=== PATIENT | female | born 1945 | race Caucasian/White ===

== ENCOUNTER 2017-12-09 10:03 | Inpatient (IN) | payer OTHER ==
[~2017-12-09 10:03] MED LIST: ACETAMINOPHEN 1000 MG/100 ML IVPB; CEFAZOLIN 1 GM INJ; DEXAMETHASONE 4 MG/ML 1 ML INJ; ONDANSETRON 4 MG INJ
[2017-12-09] MEDS ORDERED: POLYMYXIN B 500000 UNIT INJ (11:42)
[2017-12-09] MEDS ORDERED: MIDAZOLAM 1 MG/ML 2 ML INJ (12:01)
[2017-12-09] MEDS ORDERED: PROPOFOL 20 ML (12:01)
[2017-12-09] MEDS ORDERED: FENTAnyl 50 MCG/ML VIAL (12:01)
[2017-12-09] MEDS ORDERED: METOCLOPRAMIDE 10 MG INJ (12:02)
[2017-12-09] MEDS ORDERED: LIDOCAINE 2% (SDV) 5 ML INJ (12:02)
[2017-12-09] MEDS ORDERED: BUPIVACAINE 0.75%/DEXT (SPINAL) 2 ML INJ (12:06)
[2017-12-09] MEDS ORDERED: EPINEPHrine 1 MG INJ (12:06)
[2017-12-09] MEDS ORDERED: POLYMYXIN/BACITRACIN 1L IRRIG (12:08)
[2017-12-09] MEDS ORDERED: CEFAZOLIN 2 GM/50 ML (PMX) 50 ML IVPB (12:33)
[2017-12-09] MEDS: POLYMYXIN/BACITRACIN 1L IRRIG IRR (12:49)
[2017-12-09] MEDS: BACITRACIN 50000 UNITS INJ IRR (12:49)
[2017-12-09] MEDS: POLYMYXIN B 500000 UNIT INJ IRR (12:49)
[2017-12-09] MEDS ORDERED: NALOXONE (0.4 MG/ML) INJ IV (13:00)
[2017-12-09] MEDS ORDERED: NACL 0.9% 3 ML SYG IV (13:00)
[2017-12-09] MEDS ORDERED: oxyCODONE 5 MG TAB PO (13:00)
[2017-12-09] MEDS ORDERED: DIPHENHYDRAMINE 50 MG INJ IV ×2 (13:00→14:30)
[2017-12-09] MEDS ORDERED: BETHANECHOL 25 MG TAB PO (13:00)
[2017-12-09] MEDS ORDERED: BISACODYL 10 MG SUPP PR (13:00)
[2017-12-09] MEDS ORDERED: SENNA/DOCUSATE NA (8.6MG/50MG) TAB PO (13:00)
[2017-12-09] MEDS ORDERED: MAGNESIUM HYDROXIDE 30ML CUP PO (13:00)
[2017-12-09] MEDS: TRANEXAMIC ACID 1,000 MG in DEXTROSE 5% 100 ML IV (13:00)
[2017-12-09] MEDS ORDERED: NA PHOSPHATE/BIPHOS 133 ML ENEMA PR (13:00)
[2017-12-09] MEDS ORDERED: hydrALAzine 20 MG INJ (13:58)
[2017-12-09] MEDS ORDERED: IPRATROPIUM (NEB) 0.5 MG/2.5 ML AMP HHN (14:30)
[2017-12-09] MEDS ORDERED: hydrALAzine 20 MG INJ IV (14:30)
[2017-12-09] MEDS ORDERED: HYDROmorphONE 1 MG/5 ML IV SYRINGE IV ×3 (14:30)
[2017-12-09] MEDS ORDERED: LABETALOL HCL 20MG INJ IV (14:30)
[2017-12-09] MEDS ORDERED: ONDANSETRON 4 MG INJ IV (14:30)
[2017-12-09] MEDS ORDERED: FENTAnyl 50 MCG/ML VIAL IV ×2 (14:30)
[2017-12-09] MEDS ORDERED: MEPERIDINE 25 MG INJ IV (14:30)
[2017-12-09] MEDS: ASPIRIN (EC) 325 MG TAB PO (15:05)
[2017-12-09] MEDS: DOCUSATE SODIUM 100 MG CAP PO (15:05)
[2017-12-09] MEDS: CEFAZOLIN 1 GM/50 ML (PMX) 50 ML IVPB ×2 (15:06→20:17)
[2017-12-09] MEDS: SOD CHLORIDE 0.9% 1,000 ML IV ×2 (15:07→15:46)
[2017-12-09] MEDS: ONDANSETRON 4 MG INJ IV ×2 (15:32→18:47)
[2017-12-09] MEDS: KETOROLAC 15 MG INJ IV (18:47)
[2017-12-09] MEDS: ATORVASTATIN 10 MG TAB PO (20:17)
[2017-12-09] MEDS: METOPROLOL 50 MG TAB PO (20:17)
[2017-12-09] MEDS: GABAPENTIN 100 MG CAP PO (20:18)
[2017-12-10] MEDS: KETOROLAC 15 MG INJ IV ×2 (01:26→07:04)
[2017-12-10] MEDS: ONDANSETRON 4 MG INJ IV ×2 (01:26→06:07)
[2017-12-10] MEDS: SOD CHLORIDE 0.9% 1,000 ML IV (01:29)
[2017-12-10] MEDS: CEFAZOLIN 1 GM/50 ML (PMX) 50 ML IVPB (04:46)
[2017-12-10 05:22] LABS: ADD MAN DIFF? NO
[2017-12-10 05:31] LABS: WHITE BLOOD COUNT 14.6 10^3/ul (4.8-10.8)
[2017-12-10 05:32] LABS: BASOPHILS % 0.2 % (0.0-2.0); HEMATOCRIT 33.4 % (37.0-47.0); HEMOGLOBIN 10.9 g/dl (12.0-16.0); LYMPHOCYTES % 6.7 % (15.0-51.0); MEAN CORPUSCULAR HEMOGLOBIN 30.8 pg (29.0-33.0); MEAN CORPUSCULAR HGB CONC 32.6 g/dl (32.0-37.0); MEAN CORPUSCULAR VOLUME 94.4 fl (82.0-101.0); MEAN PLATELET VOLUME 10.5 fl (7.4-10.4); MONOCYTE # 1.4 10^3/ul (0.3-0.9); MONOCYTES % 9.8 % (0.0-11.0); NEUTROPHIL # 12.1 10^3/ul (1.6-7.5); NEUTROPHILS % 82.9 % (39.0-77.0); PLATELET COUNT 235 10^3/UL (140-415); RED BLOOD COUNT 3.54 10^6/ul (4.20-5.40); RED CELL DISTRIBUTION WIDTH 12.1 % (11.5-14.5)
[2017-12-10 05:41] LABS: ANION GAP 14 (8-16); BLOOD UREA NITROGEN 15 mg/dl (7-20); CALCIUM 9.3 mg/dl (8.4-10.2); CARBON DIOXIDE 28 mmol/L (21-31); CHLORIDE 104 mmol/L (97-110); CREATININE 0.66 mg/dl (0.44-1.00); GLUCOSE 126 mg/dl (70-220); POTASSIUM 4.2 mmol/L (3.5-5.1); SODIUM 142 mmol/L (135-144)
[2017-12-10] MEDS: PANTOPRAZOLE (EC) 40 MG TAB PO (06:00)
[2017-12-10] MEDS: FERROUS FUMARATE (SR) TAB PO ×2 (08:15→20:17)
[2017-12-10] MEDS: GABAPENTIN 100 MG CAP PO ×2 (08:16→20:17)
[2017-12-10] MEDS: FUROSEMIDE 20 MG TAB PO (08:16)
[2017-12-10] MEDS: LISINOPRIL 20 MG TAB PO (08:16)
[2017-12-10] MEDS: DOCUSATE SODIUM 100 MG CAP PO ×2 (08:17→20:18)
[2017-12-10] MEDS: HYDROCHLOROTHIAZIDE 12.5 MG CAP PO (08:17)
[2017-12-10] MEDS: METOPROLOL 50 MG TAB PO ×2 (08:17→20:34)
[2017-12-10] MEDS: AMLODIPINE 5 MG TAB PO (08:17)
[2017-12-10] MEDS: ASPIRIN (EC) 325 MG TAB PO (08:18)
[2017-12-10] MEDS ORDERED: CELECOXIB 200 MG CAP PO (09:00)
[2017-12-10] MEDS ORDERED: ACETAMINOPHEN 1000MG/100ML IV 100 ML IVPB (09:00)
[2017-12-10] MEDS: CELECOXIB 100 MG CAP PO ×2 (11:46→20:17)
[2017-12-10] MEDS: ACETAMINOPHEN 325 MG TAB PO ×2 (11:46→18:35)
[2017-12-10] MEDS: ATORVASTATIN 10 MG TAB PO (20:17)
[2017-12-11] MEDS: KETOROLAC 15 MG INJ IV (00:27)
[2017-12-11] MEDS: SOD CHLORIDE 0.9% 1,000 ML IV ×2 (02:06→14:36)
[2017-12-11] MEDS: PANTOPRAZOLE (EC) 40 MG TAB PO (06:57)
[2017-12-11] MEDS: oxyCODONE 5 MG TAB PO ×2 (07:49→13:24)
[2017-12-11] MEDS: GABAPENTIN 100 MG CAP PO ×2 (08:41→21:10)
[2017-12-11] MEDS: CELECOXIB 100 MG CAP PO ×2 (08:41→21:10)
[2017-12-11] MEDS: HYDROCHLOROTHIAZIDE 12.5 MG CAP PO (08:42)
[2017-12-11] MEDS: LISINOPRIL 20 MG TAB PO (08:42)
[2017-12-11] MEDS: ONDANSETRON 4 MG INJ IV ×2 (08:42→15:25)
[2017-12-11] MEDS: AMLODIPINE 5 MG TAB PO (08:43)
[2017-12-11] MEDS: METOPROLOL 50 MG TAB PO ×2 (08:43→21:15)
[2017-12-11] MEDS: FUROSEMIDE 20 MG TAB PO (08:43)
[2017-12-11] MEDS: ASPIRIN (EC) 325 MG TAB PO (08:43)
[2017-12-11] MEDS: FERROUS FUMARATE (SR) TAB PO ×2 (08:43→21:10)
[2017-12-11] MEDS: DOCUSATE SODIUM 100 MG CAP PO ×2 (08:44→21:00)
[2017-12-11 09:38] LABS: ADD MAN DIFF? NO
[2017-12-11 09:41] LABS: ABNORMAL IP MESSAGE 1; BASOPHIL # 0.1 10^3/ul (0.0-0.1); BASOPHILS % 0.6 % (0.0-2.0); EOSINOPHILS # 0.1 10^3/ul (0.0-0.5); EOSINOPHILS % 0.9 % (0.0-7.0); HEMATOCRIT 31.6 % (37.0-47.0); HEMOGLOBIN 9.9 g/dl (12.0-16.0); LYMPHOCYTES # 1.4 10^3/ul (0.8-2.9); LYMPHOCYTES % 12.8 % (15.0-51.0); MEAN CORPUSCULAR HEMOGLOBIN 30.2 pg (29.0-33.0); MEAN CORPUSCULAR HGB CONC 31.3 g/dl (32.0-37.0); MEAN CORPUSCULAR VOLUME 96.3 fl (82.0-101.0); MEAN PLATELET VOLUME 10.3 fl (7.4-10.4); MONOCYTE # 1.6 10^3/ul (0.3-0.9); MONOCYTES % 14.3 % (0.0-11.0); NEUTROPHIL # 7.8 10^3/ul (1.6-7.5); PLATELET COUNT 212 10^3/UL (140-415); RED BLOOD COUNT 3.28 10^6/ul (4.20-5.40); RED CELL DISTRIBUTION WIDTH 12.6 % (11.5-14.5)
[2017-12-11 09:44] LABS: POSITIVE DIFF @See below
[2017-12-11 10:09] LABS: ANION GAP 16 (8-16); BLOOD UREA NITROGEN 17 mg/dl (7-20); CALCIUM 8.8 mg/dl (8.4-10.2); CARBON DIOXIDE 28 mmol/L (21-31); CHLORIDE 102 mmol/L (97-110); CREATININE 0.97 mg/dl (0.44-1.00); GLUCOSE 114 mg/dl (70-220); POTASSIUM 4.3 mmol/L (3.5-5.1); SODIUM 142 mmol/L (135-144)
[2017-12-11] MEDS ORDERED: METOCLOPRAMIDE 10 MG INJ IV (16:15)
[2017-12-11] MEDS: PROCHLORPERAZINE 10 MG INJ IV (17:08)
[2017-12-11] MEDS: ACETAMINOPHEN 325 MG TAB PO (21:09)
[2017-12-11] MEDS: ATORVASTATIN 10 MG TAB PO (21:10)
[2017-12-12] MEDS: SOD CHLORIDE 0.9% 1,000 ML IV ×2 (03:06→13:43)
[2017-12-12] MEDS: PANTOPRAZOLE (EC) 40 MG TAB PO (06:00)
[2017-12-12] MEDS: LISINOPRIL 20 MG TAB PO (08:39)
[2017-12-12] MEDS: ASPIRIN (EC) 325 MG TAB PO (08:40)
[2017-12-12] MEDS: AMLODIPINE 5 MG TAB PO (08:40)
[2017-12-12] MEDS: METOPROLOL 50 MG TAB PO ×2 (08:40→21:44)
[2017-12-12] MEDS: CELECOXIB 100 MG CAP PO ×2 (08:41→21:43)
[2017-12-12] MEDS: FUROSEMIDE 20 MG TAB PO (08:41)
[2017-12-12] MEDS: GABAPENTIN 100 MG CAP PO ×2 (08:41→21:42)
[2017-12-12] MEDS: HYDROCHLOROTHIAZIDE 12.5 MG CAP PO (08:41)
[2017-12-12] MEDS: FERROUS FUMARATE (SR) TAB PO ×2 (08:42→21:42)
[2017-12-12] MEDS: DOCUSATE SODIUM 100 MG CAP PO ×2 (08:42→21:43)
[2017-12-12] MEDS: ACETAMINOPHEN 325 MG TAB PO ×2 (08:44→15:27)
[2017-12-12 12:05] LABS: ADD MAN DIFF? NO
[2017-12-12 12:06] LABS: WHITE BLOOD COUNT 11.3 10^3/ul (4.8-10.8)
[2017-12-12 12:06] LABS: ABNORMAL IP MESSAGE 1; BASOPHIL # 0.1 10^3/ul (0.0-0.1); BASOPHILS % 0.6 % (0.0-2.0); EOSINOPHILS # 0.2 10^3/ul (0.0-0.5); EOSINOPHILS % 1.8 % (0.0-7.0); HEMATOCRIT 29.2 % (37.0-47.0); HEMOGLOBIN 9.3 g/dl (12.0-16.0); LYMPHOCYTES # 1.8 10^3/ul (0.8-2.9); MEAN CORPUSCULAR HEMOGLOBIN 30.6 pg (29.0-33.0); MEAN CORPUSCULAR HGB CONC 31.8 g/dl (32.0-37.0); MEAN CORPUSCULAR VOLUME 96.1 fl (82.0-101.0); MONOCYTE # 1.6 10^3/ul (0.3-0.9); MONOCYTES % 14.5 % (0.0-11.0); NEUTROPHIL # 7.5 10^3/ul (1.6-7.5); NEUTROPHILS % 66.2 % (39.0-77.0); PLATELET COUNT 212 10^3/UL (140-415); RED BLOOD COUNT 3.04 10^6/ul (4.20-5.40); RED CELL DISTRIBUTION WIDTH 12.7 % (11.5-14.5)
[2017-12-12 12:14] LABS: POSITIVE DIFF @See below
[2017-12-12 12:27] LABS: ANION GAP 14 (8-16); BLOOD UREA NITROGEN 25 mg/dl (7-20); CALCIUM 9.1 mg/dl (8.4-10.2); CARBON DIOXIDE 32 mmol/L (21-31); CHLORIDE 99 mmol/L (97-110); CREATININE 1.12 mg/dl (0.44-1.00); GLUCOSE 118 mg/dl (70-220); POTASSIUM 4.9 mmol/L (3.5-5.1); SODIUM 140 mmol/L (135-144)
[2017-12-12] MEDS: ATORVASTATIN 10 MG TAB PO (21:44)
[2017-12-13] MEDS: SOD CHLORIDE 0.9% 1,000 ML IV ×2 (04:06→16:26)
[2017-12-13] MEDS: ACETAMINOPHEN 325 MG TAB PO ×3 (05:30→16:11)
[2017-12-13] MEDS: PANTOPRAZOLE (EC) 40 MG TAB PO (05:30)
[2017-12-13] MEDS: FERROUS FUMARATE (SR) TAB PO (09:00)
[2017-12-13] MEDS: ASPIRIN (EC) 325 MG TAB PO (09:34)
[2017-12-13] MEDS: CELECOXIB 100 MG CAP PO (09:34)
[2017-12-13] MEDS: LISINOPRIL 20 MG TAB PO (09:35)
[2017-12-13] MEDS: AMLODIPINE 5 MG TAB PO (09:35)
[2017-12-13] MEDS: FUROSEMIDE 20 MG TAB PO (09:35)
[2017-12-13] MEDS: GABAPENTIN 100 MG CAP PO (09:35)
[2017-12-13] MEDS: HYDROCHLOROTHIAZIDE 12.5 MG CAP PO (09:35)
[2017-12-13] MEDS: METOPROLOL 50 MG TAB PO (09:36)
[2017-12-13] MEDS: CARBOXYMETHYLCELLULOSE 0.5% 0.4 ML OPH BOTH EYES ×2 (11:27→16:11)
[2017-12-13 12:26] LABS: ADD MAN DIFF? NO
[2017-12-13 12:43] LABS: WHITE BLOOD COUNT 10.1 10^3/ul (4.8-10.8)
[2017-12-13 12:43] LABS: BASOPHIL # 0.1 10^3/ul (0.0-0.1); BASOPHILS % 0.7 % (0.0-2.0); EOSINOPHILS # 0.3 10^3/ul (0.0-0.5); EOSINOPHILS % 2.5 % (0.0-7.0); HEMATOCRIT 29.8 % (37.0-47.0); HEMOGLOBIN 9.6 g/dl (12.0-16.0); LYMPHOCYTES # 1.6 10^3/ul (0.8-2.9); LYMPHOCYTES % 15.9 % (15.0-51.0); MEAN CORPUSCULAR HEMOGLOBIN 30.7 pg (29.0-33.0); MEAN CORPUSCULAR HGB CONC 32.2 g/dl (32.0-37.0); MEAN CORPUSCULAR VOLUME 95.2 fl (82.0-101.0); MEAN PLATELET VOLUME 10.6 fl (7.4-10.4); MONOCYTE # 1.4 10^3/ul (0.3-0.9); NEUTROPHIL # 6.7 10^3/ul (1.6-7.5); NEUTROPHILS % 66.3 % (39.0-77.0); PLATELET COUNT 247 10^3/UL (140-415); RED BLOOD COUNT 3.13 10^6/ul (4.20-5.40); RED CELL DISTRIBUTION WIDTH 12.4 % (11.5-14.5)
[2017-12-13 12:50] LABS: ANION GAP 13 (8-16); BLOOD UREA NITROGEN 23 mg/dl (7-20); CALCIUM 9.3 mg/dl (8.4-10.2); CARBON DIOXIDE 34 mmol/L (21-31); CHLORIDE 101 mmol/L (97-110); CREATININE 0.95 mg/dl (0.44-1.00); GLUCOSE 112 mg/dl (70-220); POTASSIUM 4.7 mmol/L (3.5-5.1); SODIUM 143 mmol/L (135-144)
== END 2017-12-13 18:40 | disposition home health service (06) | DRG 470 ==
LOC: REC 10:03 → MS1 15:39
PROC: 0SR903Z Replacement of Right Hip Joint with Ceramic Synthetic Substitute, Open Approach (ICD-10-PCS; principal; 2017-12-09 10:30)
DX: M16.11 Unilateral primary osteoarthritis, right hip (principal); E66.01 Morbid (severe) obesity due to excess calories; Z68.36 Body mass index [BMI] 36.0-36.9, adult; E78.5 Hyperlipidemia, unspecified; I10 Essential (primary) hypertension
CPT/HCPCS: 73530; 80048; 85025; 86850; 86900; 86901; 87081; 88304; 88311; 93971; 97110; 97116; 97163; 97165; 97530

== ENCOUNTER 2018-02-03 08:41 | Inpatient (IN) | payer OTHER ==
[2018-02-03] MEDS: LACTATED RINGER'S 1,000 ML IV (07:00)
[~2018-02-03 08:41] MED LIST changes: -ACETAMINOPHEN 1000 MG/100 ML IVPB; -CEFAZOLIN 1 GM INJ; +CEFAZOLIN 2 GM/50 ML (PMX) 50 ML (FOR WT < 120 KG) IVPB; -DEXAMETHASONE 4 MG/ML 1 ML INJ; -ONDANSETRON 4 MG INJ
[2018-02-03] MEDS ORDERED: LIDOCAINE 2% (SDV) 5 ML INJ (10:15)
[2018-02-03] MEDS ORDERED: BUPIVACAINE 0.75%/DEXT (SPINAL) 2 ML INJ (10:15)
[2018-02-03] MEDS ORDERED: PROPOFOL 20 ML (10:15)
[2018-02-03] MEDS ORDERED: ONDANSETRON 4 MG INJ (10:15)
[2018-02-03] MEDS ORDERED: METOCLOPRAMIDE 10 MG INJ (10:15)
[2018-02-03] MEDS ORDERED: CEFAZOLIN 1 GM INJ (10:15)
[2018-02-03] MEDS: BACITRACIN 50000 UNITS INJ IRR (11:35)
[2018-02-03] MEDS: POLYMYXIN B 500000 UNIT INJ (11:35)
[2018-02-03] MEDS: TRANEXAMIC ACID 1,000 MG in D5W 100 ML AT INCISION X1 IVPB (11:36)
[2018-02-03] MEDS: SOD CHLORIDE 0.9% 1,000 ML IV ×2 (12:23→19:35)
[2018-02-03] MEDS ORDERED: oxyCODONE 5 MG TAB PO ×3 (12:30)
[2018-02-03] MEDS ORDERED: SENNA/DOCUSATE NA (8.6MG/50MG) TAB PO (12:30)
[2018-02-03] MEDS ORDERED: NACL 0.9% 3 ML SYG IV (12:30)
[2018-02-03] MEDS: TRANEXAMIC ACID 1,000 MG in D5W 100 ML AT CLOSURE X1 IVPB ×2 (12:54)
[2018-02-03] MEDS ORDERED: EPHEDrine SULFATE 50 MG/5 ML SYG (13:02)
[2018-02-03] MEDS ORDERED: ATROPINE 1 MG/10 ML SYRINGE (13:02)
[2018-02-03] MEDS ORDERED: BACITRACIN 50000 UNITS INJ (13:09)
[2018-02-03] MEDS ORDERED: CEFAZOLIN 1 GM/50 ML (PMX) 50 ML IVPB (13:26)
[2018-02-03] MEDS: CEFAZOLIN 1 GM/50 ML (PMX) 50 ML IVPB ×2 (13:27→22:29)
[2018-02-03] MEDS: ONDANSETRON 4 MG INJ IV ×2 (13:27→18:27)
[2018-02-03] MEDS ORDERED: ONDANSETRON 4 MG INJ IV (13:30)
[2018-02-03] MEDS ORDERED: MEPERIDINE 25 MG INJ IV (13:30)
[2018-02-03] MEDS ORDERED: HYDROmorphONE 1 MG/5 ML IV SYRINGE IV ×3 (13:30)
[2018-02-03] MEDS ORDERED: METOCLOPRAMIDE 10 MG INJ IV (13:30)
[2018-02-03] MEDS ORDERED: OXYCODONE/ACETAMINOPHEN (5/325) TAB PO ×2 (13:30)
[2018-02-03] MEDS ORDERED: DIPHENHYDRAMINE 50 MG INJ IV (13:30)
[2018-02-03] MEDS ORDERED: FENTAnyl 50 MCG/ML VIAL IV ×3 (13:30)
[2018-02-03] MEDS ORDERED: EPHEDrine SULFATE 50 MG/5 ML SYG IV (13:30)
[2018-02-03] MEDS ORDERED: hydrALAzine 20 MG INJ IV (13:30)
[2018-02-03] MEDS ORDERED: LABETALOL HCL 20MG INJ IV (13:30)
[2018-02-03] MEDS ORDERED: MIDAZOLAM 1 MG/ML 2 ML INJ IV (13:30)
[2018-02-03] MEDS: ASPIRIN 81 MG TAB PO (20:44)
[2018-02-04] MEDS: ONDANSETRON 4 MG INJ IV ×3 (00:30→18:39)
[2018-02-04] MEDS: SOD CHLORIDE 0.9% 1,000 ML IV ×2 (00:53→13:23)
[2018-02-04] MEDS: ACETAMINOPHEN 325 MG TAB PO ×2 (04:15→20:37)
[2018-02-04 05:11] LABS: ADD MAN DIFF? NO
[2018-02-04 05:15] LABS: BASOPHIL # 0.1 10^3/ul (0.0-0.1); BASOPHILS % 0.5 % (0.0-2.0); EOSINOPHILS % 0.4 % (0.0-7.0); HEMATOCRIT 34.6 % (37.0-47.0); HEMOGLOBIN 10.8 g/dl (12.0-16.0); LYMPHOCYTES # 1.2 10^3/ul (0.8-2.9); LYMPHOCYTES % 10.9 % (15.0-51.0); MEAN CORPUSCULAR HEMOGLOBIN 29.8 pg (29.0-33.0); MEAN CORPUSCULAR HGB CONC 31.2 g/dl (32.0-37.0); MEAN CORPUSCULAR VOLUME 95.3 fl (82.0-101.0); MEAN PLATELET VOLUME 10.3 fl (7.4-10.4); MONOCYTE # 1.2 10^3/ul (0.3-0.9); MONOCYTES % 11.3 % (0.0-11.0); NEUTROPHIL # 8.1 10^3/ul (1.6-7.5); NEUTROPHILS % 76.5 % (39.0-77.0); PLATELET COUNT 237 10^3/UL (140-415); RED BLOOD COUNT 3.63 10^6/ul (4.20-5.40); RED CELL DISTRIBUTION WIDTH 12.8 % (11.5-14.5)
[2018-02-04 05:15] LABS: WHITE BLOOD COUNT 10.6 10^3/ul (4.8-10.8)
[2018-02-04 05:35] LABS: INR 1.08; PROTIME 14.1 Sec (11.9-14.9); PT RATIO 1.1
[2018-02-04] MEDS: CEFAZOLIN 1 GM/50 ML (PMX) 50 ML IVPB (05:55)
[2018-02-04 05:56] LABS: ANION GAP 15 (8-16); BLOOD UREA NITROGEN 30 mg/dl (7-20); CALCIUM 8.8 mg/dl (8.4-10.2); CARBON DIOXIDE 25 mmol/L (21-31); CHLORIDE 105 mmol/L (97-110); CREATININE 0.91 mg/dl (0.44-1.00); GLUCOSE 138 mg/dl (70-220); POTASSIUM 4.7 mmol/L (3.5-5.1); SODIUM 140 mmol/L (135-144)
[2018-02-04] MEDS ORDERED: KETOROLAC 15 MG INJ INJ (06:00)
[2018-02-04] MEDS: ASPIRIN 81 MG TAB PO ×2 (09:01→20:37)
[2018-02-04] MEDS: CELECOXIB 200 MG CAP PO (09:02)
[2018-02-04] MEDS: FUROSEMIDE 20 MG TAB PO (13:00)
[2018-02-04] MEDS: CHOLECALCIFEROL 1,000 UNIT TAB PO (14:10)
[2018-02-04] MEDS: AMLODIPINE 5 MG TAB PO (14:10)
[2018-02-04] MEDS: ATORVASTATIN 10 MG TAB PO (20:37)
[2018-02-04] MEDS: LISINOPRIL 20 MG TAB PO (20:41)
[2018-02-04] MEDS: HYDROCHLOROTHIAZIDE 12.5 MG CAP PO (20:41)
[2018-02-04] MEDS: METOPROLOL 50 MG TAB PO (20:42)
[2018-02-05] MEDS: SOD CHLORIDE 0.9% 1,000 ML IV ×2 (01:53→14:23)
[2018-02-05] MEDS: ACETAMINOPHEN 325 MG TAB PO ×2 (04:01→08:56)
[2018-02-05 06:00] LABS: ADD MAN DIFF? NO
[2018-02-05 06:12] LABS: BASOPHILS % 0.4 % (0.0-2.0); EOSINOPHILS # 0.1 10^3/ul (0.0-0.5); EOSINOPHILS % 0.5 % (0.0-7.0); HEMATOCRIT 32.4 % (37.0-47.0); HEMOGLOBIN 10.2 g/dl (12.0-16.0); LYMPHOCYTES # 1.4 10^3/ul (0.8-2.9); LYMPHOCYTES % 13.2 % (15.0-51.0); MEAN CORPUSCULAR HEMOGLOBIN 29.9 pg (29.0-33.0); MEAN CORPUSCULAR HGB CONC 31.5 g/dl (32.0-37.0); MEAN PLATELET VOLUME 10.7 fl (7.4-10.4); MONOCYTE # 1.3 10^3/ul (0.3-0.9); MONOCYTES % 11.7 % (0.0-11.0); NEUTROPHIL # 7.9 10^3/ul (1.6-7.5); NEUTROPHILS % 73.8 % (39.0-77.0); PLATELET COUNT 226 10^3/UL (140-415); RED BLOOD COUNT 3.41 10^6/ul (4.20-5.40); RED CELL DISTRIBUTION WIDTH 12.9 % (11.5-14.5)
[2018-02-05 06:12] LABS: WHITE BLOOD COUNT 10.6 10^3/ul (4.8-10.8)
[2018-02-05 06:27] LABS: INR 1.09; PROTIME 14.3 Sec (11.9-14.9); PT RATIO 1.1
[2018-02-05 06:28] LABS: ANION GAP 11 (8-16); BLOOD UREA NITROGEN 19 mg/dl (7-20); CALCIUM 9.2 mg/dl (8.4-10.2); CARBON DIOXIDE 29 mmol/L (21-31); CHLORIDE 102 mmol/L (97-110); CREATININE 0.84 mg/dl (0.44-1.00); GLUCOSE 132 mg/dl (70-220); POTASSIUM 4.7 mmol/L (3.5-5.1); SODIUM 137 mmol/L (135-144)
[2018-02-05 06:31] LABS: PHOSPHORUS 3.5 mg/dl (2.5-4.9)
[2018-02-05 06:31] LABS: CHOL/HDL RATIO 2.7 RATIO; CHOLESTEROL 131 mg/dl (100-200); HDL CHOLESTEROL 48 mg/dl (33-92); LDL CHOLESTEROL,CALCULATED 61 mg/dl; MAGNESIUM 2.3 mg/dl (1.7-2.5); TRIGLYCERIDES 111 mg/dl (0-149)
[2018-02-05] MEDS: CELECOXIB 200 MG CAP PO (08:36)
[2018-02-05] MEDS: ASPIRIN 81 MG TAB PO ×2 (08:36→20:32)
[2018-02-05] MEDS: HYDROCHLOROTHIAZIDE 12.5 MG CAP PO ×2 (08:37→20:32)
[2018-02-05] MEDS: METOPROLOL 50 MG TAB PO ×2 (08:39→20:33)
[2018-02-05] MEDS: FUROSEMIDE 20 MG TAB PO (08:39)
[2018-02-05] MEDS: AMLODIPINE 5 MG TAB PO (08:39)
[2018-02-05] MEDS: LISINOPRIL 20 MG TAB PO ×2 (08:40→20:33)
[2018-02-05] MEDS: POTASSIUM CHLORIDE (SR) 20 MEQ TAB PO (08:43)
[2018-02-05] MEDS: CHOLECALCIFEROL 1,000 UNIT TAB PO (08:45)
[2018-02-05] MEDS: VITAMIN E 400 UNITS CAP PO (08:45)
[2018-02-05] MEDS: CYANOCOBALAMIN 500 MCG TAB PO (08:45)
[2018-02-05] MEDS: ATORVASTATIN 10 MG TAB PO (20:32)
[2018-02-06] MEDS: SOD CHLORIDE 0.9% 1,000 ML IV ×2 (02:53→15:23)
[2018-02-06] MEDS: ACETAMINOPHEN 325 MG TAB PO ×4 (06:23→20:49)
[2018-02-06 08:17] LABS: ADD MAN DIFF? NO
[2018-02-06 08:23] LABS: WHITE BLOOD COUNT 11.9 10^3/ul (4.8-10.8)
[2018-02-06 08:23] LABS: BASOPHIL # 0.1 10^3/ul (0.0-0.1); BASOPHILS % 0.5 % (0.0-2.0); EOSINOPHILS # 0.2 10^3/ul (0.0-0.5); EOSINOPHILS % 1.6 % (0.0-7.0); HEMATOCRIT 33.8 % (37.0-47.0); HEMOGLOBIN 10.8 g/dl (12.0-16.0); LYMPHOCYTES # 1.3 10^3/ul (0.8-2.9); LYMPHOCYTES % 11.1 % (15.0-51.0); MEAN CORPUSCULAR HEMOGLOBIN 30.1 pg (29.0-33.0); MEAN CORPUSCULAR VOLUME 94.2 fl (82.0-101.0); MEAN PLATELET VOLUME 9.8 fl (7.4-10.4); MONOCYTE # 1.4 10^3/ul (0.3-0.9); NEUTROPHIL # 8.9 10^3/ul (1.6-7.5); NEUTROPHILS % 74.4 % (39.0-77.0); PLATELET COUNT 244 10^3/UL (140-415); RED BLOOD COUNT 3.59 10^6/ul (4.20-5.40); RED CELL DISTRIBUTION WIDTH 12.5 % (11.5-14.5)
[2018-02-06 08:44] LABS: ANION GAP 13 (8-16); BLOOD UREA NITROGEN 18 mg/dl (7-20); CALCIUM 9.5 mg/dl (8.4-10.2); CARBON DIOXIDE 30 mmol/L (21-31); CHLORIDE 101 mmol/L (97-110); CREATININE 0.79 mg/dl (0.44-1.00); GLUCOSE 104 mg/dl (70-220); INR 1.04; POTASSIUM 4.7 mmol/L (3.5-5.1); PROTIME 13.7 Sec (11.9-14.9); PT RATIO 1.1; SODIUM 139 mmol/L (135-144)
[2018-02-06] MEDS: ASPIRIN 81 MG TAB PO ×2 (08:47→20:43)
[2018-02-06] MEDS: CELECOXIB 200 MG CAP PO (08:47)
[2018-02-06] MEDS: HYDROCHLOROTHIAZIDE 12.5 MG CAP PO ×2 (08:51→20:43)
[2018-02-06] MEDS: AMLODIPINE 5 MG TAB PO (08:51)
[2018-02-06] MEDS: LISINOPRIL 20 MG TAB PO ×2 (08:51→20:42)
[2018-02-06] MEDS: METOPROLOL 50 MG TAB PO ×2 (08:52→20:43)
[2018-02-06] MEDS: POTASSIUM CHLORIDE (SR) 20 MEQ TAB PO (08:52)
[2018-02-06] MEDS: FUROSEMIDE 20 MG TAB PO (08:53)
[2018-02-06] MEDS: VITAMIN E 400 UNITS CAP PO (08:55)
[2018-02-06] MEDS: CYANOCOBALAMIN 500 MCG TAB PO (08:55)
[2018-02-06] MEDS: CHOLECALCIFEROL 1,000 UNIT TAB PO (08:55)
[2018-02-06 09:41] LABS: ALANINE AMINOTRANSFERASE 19 IU/L (13-69); ALBUMIN 3.6 g/dl (3.3-4.9); ALKALINE PHOSPHATASE 85 IU/L (42-121); ASPARTATE AMINO TRANSFERASE 28 IU/L (15-46); BILIRUBIN,INDIRECT 0.4 mg/dl (0-1.1); BILIRUBIN,TOTAL 0.4 mg/dl (0.2-1.3); TOTAL PROTEIN 6.9 g/dl (6.1-8.1)
[2018-02-06] MEDS: GABAPENTIN 100 MG CAP PO ×2 (10:51→20:43)
[2018-02-06] MEDS: ATORVASTATIN 10 MG TAB PO (20:42)
[2018-02-07] MEDS: SOD CHLORIDE 0.9% 1,000 ML IV ×2 (03:53→16:23)
[2018-02-07] MEDS: ACETAMINOPHEN 325 MG TAB PO ×5 (04:47→22:55)
[2018-02-07 05:29] LABS: ADD MAN DIFF? NO
[2018-02-07 05:36] LABS: BASOPHIL # 0.1 10^3/ul (0.0-0.1); BASOPHILS % 0.7 % (0.0-2.0); EOSINOPHILS # 0.5 10^3/ul (0.0-0.5); EOSINOPHILS % 3.7 % (0.0-7.0); HEMATOCRIT 31.9 % (37.0-47.0); HEMOGLOBIN 10.2 g/dl (12.0-16.0); LYMPHOCYTES # 2.3 10^3/ul (0.8-2.9); LYMPHOCYTES % 18.9 % (15.0-51.0); MEAN CORPUSCULAR HEMOGLOBIN 30.1 pg (29.0-33.0); MEAN CORPUSCULAR VOLUME 94.1 fl (82.0-101.0); MEAN PLATELET VOLUME 10.4 fl (7.4-10.4); MONOCYTE # 1.4 10^3/ul (0.3-0.9); MONOCYTES % 11.9 % (0.0-11.0); NEUTROPHIL # 7.8 10^3/ul (1.6-7.5); NEUTROPHILS % 64.4 % (39.0-77.0); PLATELET COUNT 271 10^3/UL (140-415); RED BLOOD COUNT 3.39 10^6/ul (4.20-5.40); RED CELL DISTRIBUTION WIDTH 12.7 % (11.5-14.5)
[2018-02-07 05:50] LABS: PROTIME 13.3 Sec (11.9-14.9)
[2018-02-07 06:10] LABS: ANION GAP 11 (8-16); BLOOD UREA NITROGEN 31 mg/dl (7-20); CALCIUM 9.3 mg/dl (8.4-10.2); CARBON DIOXIDE 29 mmol/L (21-31); CHLORIDE 103 mmol/L (97-110); CREATININE 0.98 mg/dl (0.44-1.00); GLUCOSE 93 mg/dl (70-220); SODIUM 138 mmol/L (135-144)
[2018-02-07] MEDS: CYANOCOBALAMIN 500 MCG TAB PO (09:00)
[2018-02-07] MEDS: CHOLECALCIFEROL 1,000 UNIT TAB PO (09:00)
[2018-02-07] MEDS: VITAMIN E 400 UNITS CAP PO (09:00)
[2018-02-07] MEDS: ASPIRIN 81 MG TAB PO ×2 (09:47→21:05)
[2018-02-07] MEDS: POTASSIUM CHLORIDE (SR) 20 MEQ TAB PO (09:47)
[2018-02-07] MEDS: GABAPENTIN 100 MG CAP PO ×2 (09:47→21:06)
[2018-02-07] MEDS: METOPROLOL 50 MG TAB PO ×2 (09:47→21:06)
[2018-02-07] MEDS: CELECOXIB 200 MG CAP PO (09:47)
[2018-02-07] MEDS: AMLODIPINE 5 MG TAB PO (09:48)
[2018-02-07] MEDS: FUROSEMIDE 20 MG TAB PO (09:48)
[2018-02-07] MEDS: HYDROCHLOROTHIAZIDE 12.5 MG CAP PO ×2 (09:49→21:05)
[2018-02-07] MEDS: LISINOPRIL 20 MG TAB PO ×2 (09:50→21:07)
[2018-02-07] MEDS: ATORVASTATIN 10 MG TAB PO (21:06)
[2018-02-08] MEDS: ACETAMINOPHEN 325 MG TAB PO ×2 (03:11→09:31)
[2018-02-08] MEDS: SOD CHLORIDE 0.9% 1,000 ML IV (04:51)
[2018-02-08] MEDS: VITAMIN E 400 UNITS CAP PO (09:00)
[2018-02-08] MEDS: CHOLECALCIFEROL 1,000 UNIT TAB PO (09:00)
[2018-02-08] MEDS: CYANOCOBALAMIN 500 MCG TAB PO (09:00)
[2018-02-08 09:06] LABS: ADD MAN DIFF? NO
[2018-02-08 09:09] LABS: WHITE BLOOD COUNT 11.2 10^3/ul (4.8-10.8)
[2018-02-08 09:09] LABS: BASOPHIL # 0.1 10^3/ul (0.0-0.1); BASOPHILS % 0.7 % (0.0-2.0); EOSINOPHILS # 0.4 10^3/ul (0.0-0.5); EOSINOPHILS % 3.6 % (0.0-7.0); HEMATOCRIT 35.5 % (37.0-47.0); HEMOGLOBIN 11.4 g/dl (12.0-16.0); LYMPHOCYTES # 1.8 10^3/ul (0.8-2.9); LYMPHOCYTES % 15.9 % (15.0-51.0); MEAN CORPUSCULAR HEMOGLOBIN 30.1 pg (29.0-33.0); MEAN CORPUSCULAR HGB CONC 32.1 g/dl (32.0-37.0); MEAN CORPUSCULAR VOLUME 93.7 fl (82.0-101.0); MEAN PLATELET VOLUME 9.7 fl (7.4-10.4); MONOCYTE # 1.3 10^3/ul (0.3-0.9); MONOCYTES % 11.2 % (0.0-11.0); NEUTROPHIL # 7.6 10^3/ul (1.6-7.5); PLATELET COUNT 347 10^3/UL (140-415); RED BLOOD COUNT 3.79 10^6/ul (4.20-5.40); RED CELL DISTRIBUTION WIDTH 12.3 % (11.5-14.5)
[2018-02-08] MEDS: HYDROCHLOROTHIAZIDE 12.5 MG CAP PO (09:23)
[2018-02-08] MEDS: CELECOXIB 200 MG CAP PO (09:24)
[2018-02-08] MEDS: AMLODIPINE 5 MG TAB PO (09:24)
[2018-02-08] MEDS: ASPIRIN 81 MG TAB PO (09:24)
[2018-02-08] MEDS: LISINOPRIL 20 MG TAB PO (09:24)
[2018-02-08] MEDS: POTASSIUM CHLORIDE (SR) 20 MEQ TAB PO (09:24)
[2018-02-08] MEDS: FUROSEMIDE 20 MG TAB PO (09:24)
[2018-02-08] MEDS: METOPROLOL 50 MG TAB PO (09:25)
[2018-02-08] MEDS: GABAPENTIN 100 MG CAP PO (09:25)
[2018-02-08 09:32] LABS: INR 0.86; PROTIME 11.8 Sec (11.9-14.9); PT RATIO 0.9
[2018-02-08 09:38] LABS: ANION GAP 13 (8-16); BLOOD UREA NITROGEN 27 mg/dl (7-20); CALCIUM 9.7 mg/dl (8.4-10.2); CARBON DIOXIDE 29 mmol/L (21-31); CHLORIDE 103 mmol/L (97-110); CREATININE 0.81 mg/dl (0.44-1.00); GLUCOSE 98 mg/dl (70-220); SODIUM 140 mmol/L (135-144)
== END 2018-02-08 15:55 | disposition home health service (06) | DRG 470 ==
LOC: REC 08:41 → MS1 15:25
PROC: 0SRB02A Replacement of Left Hip Joint with Metal on Polyethylene Synthetic Substitute, Uncemented, Open Approach (ICD-10-PCS; principal; 2018-02-03 10:34)
DX: M16.12 Unilateral primary osteoarthritis, left hip (principal); E66.9 Obesity, unspecified; Z68.35 Body mass index [BMI] 35.0-35.9, adult; Z71.3 Dietary counseling and surveillance; I10 Essential (primary) hypertension; E78.5 Hyperlipidemia, unspecified; D64.9 Anemia, unspecified; E78.00 Pure hypercholesterolemia, unspecified; Z79.82 Long term (current) use of aspirin
CPT/HCPCS: 73530; 80048; 80061; 80076; 83735; 84100; 85025; 85610; 86850; 86900; 86901; 87081; 88304; 88311; 97110; 97116; 97162; 97165; 97530; 97535